=== PATIENT | male | born 1990 | race Caucasian/White ===

== ENCOUNTER 2017-07-13 00:16 | Emergency (ER) | payer SELFPAY ==
[~2017-07-13] VITALS: Ht 185.4 cm; Wt 59.0 kg
[2017-07-13 00:20] VITALS: BP 125/81
== END 2017-07-13 01:03 | disposition left against medical advice (07) ==
LOC: ER 00:16
DX: Z53.21 Procedure and treatment not carried out due to patient leaving prior to being seen by health care provider (principal)

== ENCOUNTER 2018-01-17 11:38 | Emergency (ER) | payer MEDICAID ==
[~2018-01-17] VITALS: Ht 167.6 cm; Wt 71.0 kg
[2018-01-17 13:39] VITALS: BP 123/80
== END 2018-01-17 13:41 | disposition home or self-care (01) ==
LOC: ER 12:01
DX: J02.0 Streptococcal pharyngitis (principal)
CPT/HCPCS: 87430; 99283

== ENCOUNTER 2018-04-17 16:39 | Emergency (ER) | payer MEDICAID, MEDICARE ==
[~2018-04-17] VITALS: Ht 185.4 cm; Wt 68.0 kg
[2018-04-17 20:10] VITALS: BP 123/83
== END 2018-04-17 20:50 | disposition home or self-care (01) ==
LOC: ER 20:49
DX: S20.212A Contusion of left front wall of thorax, initial encounter (principal); W01.198A Fall on same level from slipping, tripping and stumbling with subsequent striking against other object, initial encounter; Y93.89 Activity, other specified; Y92.89 Other specified places as the place of occurrence of the external cause; F17.210 Nicotine dependence, cigarettes, uncomplicated
CPT/HCPCS: 71101; 99283

== ENCOUNTER 2018-11-13 09:08 | Emergency (ER) | payer SELFPAY ==
[~2018-11-13] VITALS: Ht 185.4 cm; Wt 68.0 kg
[2018-11-13] MEDS ORDERED: PENICILLIN G BENZATHINE 1,200,000 UNITS/2ML SYR IM ONE (11:45)
[2018-11-13 12:04] VITALS: BP 125/78
== END 2018-11-13 12:06 | disposition home or self-care (01) ==
LOC: ER 10:22
DX: J02.0 Streptococcal pharyngitis (principal)
CPT/HCPCS: 87430; 96372; 99283; J0561

== ENCOUNTER 2019-10-20 11:51 | Emergency (ER) | payer SELFPAY ==
[~2019-10-20] VITALS: Ht 185.4 cm; Wt 53.0 kg
[2019-10-20 12:10] VITALS: BP 130/84
[2019-10-20] MEDS ORDERED: LIDOCAINE HCL/EPINEPHRINE 1%-EPI 1:100,000 20 ML VIAL INFIL NR (14:00)
[2019-10-20] MEDS ORDERED: LIDOCAINE 1%/EPI 1:100,000 10 ML VIAL IJ ONE (14:00)
[2019-10-20] MEDS ORDERED: BACITRACIN ZINC OINT UDPKT TOP ONE (14:00)
== END 2019-10-20 14:51 | disposition home or self-care (01) ==
LOC: ER 12:00
DX: D17.79 Benign lipomatous neoplasm of other sites (principal)
CPT/HCPCS: 99282; J3490

== ENCOUNTER 2020-07-09 15:53 | Emergency (ER) | payer SELFPAY ==
[~2020-07-09] VITALS: Ht 185.4 cm; Wt 69.0 kg
[2020-07-09] MEDS ORDERED: LIDOCAINE HCL 1% 20ML VIAL (Pyxis) INJ INFIL ONE (16:30)
[2020-07-09] MEDS ORDERED: TETANUS, DIPHTHERIA, PERTUSSIS VAC/PF 0.5ML (>7YR OLD) IM ONE (16:30)
[2020-07-09 17:56] VITALS: BP 130/78
== END 2020-07-09 17:56 | disposition home or self-care (01) ==
LOC: ER 15:53
DX: S61.012A Laceration without foreign body of left thumb without damage to nail, initial encounter (principal); W27.0XXA Contact with workbench tool, initial encounter; Y93.89 Activity, other specified; Y92.89 Other specified places as the place of occurrence of the external cause
CPT/HCPCS: 12001; 73140; 90471; 90715; 99283; J3490

== ENCOUNTER 2020-07-17 14:22 | Emergency (ER) | payer MEDICAID ==
[~2020-07-17] VITALS: Ht 185.4 cm; Wt 69.0 kg
[2020-07-17 16:05] VITALS: BP 158/78
== END 2020-07-17 16:07 | disposition home or self-care (01) ==
LOC: ER 14:22
DX: S61.012D Laceration without foreign body of left thumb without damage to nail, subsequent encounter (principal); Z48.00 Encounter for change or removal of nonsurgical wound dressing; X58.XXXD Exposure to other specified factors, subsequent encounter
CPT/HCPCS: 99281

== ENCOUNTER 2020-07-24 08:56 | Emergency (ER) | payer MEDICAID ==
[~2020-07-24] VITALS: Ht 185.4 cm; Wt 69.0 kg
[2020-07-24 10:03] VITALS: BP 117/77
== END 2020-07-24 10:05 | disposition home or self-care (01) ==
LOC: ER 08:56
DX: S61.012D Laceration without foreign body of left thumb without damage to nail, subsequent encounter (principal); Z48.02 Encounter for removal of sutures; X58.XXXD Exposure to other specified factors, subsequent encounter
CPT/HCPCS: 99283; Z7610; 99281